=== PATIENT | male | born 1985 | race Caucasian/White ===

== ENCOUNTER 2021-06-21 22:26 | Emergency (ER) | payer OTHER ==
[2021-06-22] MEDS ORDERED: IBUPROFEN800 MG PO (01:21)
== END 2021-06-22 02:00 | disposition home or self-care (01) ==
LOC: ER1 22:26
PROVIDERS: Preventive Medicine Occupational Medicine
DX: N13.2 Hydronephrosis with renal and ureteral calculous obstruction (principal); N23 Unspecified renal colic; F17.210 Nicotine dependence, cigarettes, uncomplicated; F15.10 Other stimulant abuse, uncomplicated
CPT/HCPCS: 80307; 81001; 87086; 93005; 96374; 96375; 96376; 99284; J1170; J1885; J2405

== ENCOUNTER 2022-01-29 16:18 | Emergency (ER) | payer BC ==
[~2022-01-29 16:18] MED LIST: IBUPROFEN800 MG PO
[2022-01-29 16:54] LABS: HEMOGLOBIN 13.6 gm/dl (14.0-17.5); RED BLOOD COUNT 4.5 M/UL (4.20-5.50); WHITE BLOOD COUNT 10.8 K/UL (4.5-11.0)
[2022-01-29 17:11] LABS: BUN/CREATININE RATIO 25 (0-10)
[2022-01-29] MEDS ORDERED: ZOFRAN ODT 4 MG4 MG PO (18:52)
== END 2022-01-29 19:05 | disposition home or self-care (01) ==
LOC: ER1 16:18
PROVIDERS: Family Medicine
DX: R11.2 Nausea with vomiting, unspecified (principal); R07.89 Other chest pain; R19.7 Diarrhea, unspecified; Z20.822 Contact with and (suspected) exposure to COVID-19; F17.210 Nicotine dependence, cigarettes, uncomplicated
CPT/HCPCS: 0240U; 71045; 80053; 82550; 82553; 84484; 85025; 93005; 99285

== ENCOUNTER 2022-02-02 17:59 | Emergency (ER) | payer BC ==
[~2022-02-02 17:59] MED LIST changes: +ZOFRAN ODT 4 MG4 MG PO
[2022-02-02] MEDS ORDERED: PROVENTIL HFA6.7 GM INH (19:51)
[2022-02-02] MEDS ORDERED: BENZONATATE200 MG PO (19:51)
[2022-02-02] MEDS ORDERED: CLARITIN10 MG PO (20:04)
[2022-02-02] MEDS ORDERED: PREDNISONE 20 M20 MG PO (20:04)
== END 2022-02-02 18:45 | disposition home or self-care (01) ==
LOC: ER1 17:59
DX: U07.1 COVID-19 (principal); J40 Bronchitis, not specified as acute or chronic; R21 Rash and other nonspecific skin eruption; F17.200 Nicotine dependence, unspecified, uncomplicated
CPT/HCPCS: 0240U; 71045; 87081; 87880; 99283

== ENCOUNTER 2022-02-16 11:52 | Emergency (ER) | payer BC ==
[~2022-02-16 11:52] MED LIST changes: +BENZONATATE200 MG PO; +CLARITIN10 MG PO; +PREDNISONE 20 M20 MG PO; +PROVENTIL HFA6.7 GM INH
[2022-02-16] MEDS ORDERED: PREDNISONE 10 M10 MG PO (15:39)
[2022-02-16] MEDS ORDERED: PEPCID40 MG PO (15:39)
[2022-02-16] MEDS ORDERED: BENADRYL 25MG C25 MG PO (15:39)
[2022-02-16] MEDS ORDERED: EPIPEN 2-P0.3 MG/0.3 INJ (15:40)
== END 2022-02-16 14:07 | disposition home or self-care (01) ==
LOC: ER1 11:52
DX: T78.3XXA Angioneurotic edema, initial encounter (principal); T78.1XXA Other adverse food reactions, not elsewhere classified, initial encounter; F17.200 Nicotine dependence, unspecified, uncomplicated
CPT/HCPCS: 96374; 99283; J1100